=== PATIENT | male | born 1985 | race Caucasian/White ===

== ENCOUNTER 2021-03-29 07:41 | Emergency (ER) | payer BC ==
[~2021-03-29 07:41] MED LIST: NORCO 5-325 TA1 EACH PO; ZOFRAN ODT 4 MG4 MG PO
[2021-03-29] MEDS ORDERED: CYCLOBENZAPRINE5 MG PO (09:57)
[2021-03-29] MEDS ORDERED: NAPROSYN500 MG PO (09:57)
== END 2021-03-29 10:30 | disposition home or self-care (01) ==
LOC: ER1 07:41
DX: M54.5 Low back pain (principal); M53.3 Sacrococcygeal disorders, not elsewhere classified; Z88.0 Allergy status to penicillin; Z79.899 Other long term (current) drug therapy
CPT/HCPCS: 96372; 99283; J1885